=== PATIENT | female | born 1960 | race Caucasian/White ===

== ENCOUNTER 2017-11-20 12:34 | Emergency (ER) | payer OTHER ==
[~2017-11-20] VITALS: Ht 157.5 cm; Wt 90.7 kg
[~2017-11-20 12:34] MED LIST: BENICAR; HUMALOG MI100 UNIT/3; JANUMET 50-1,01 EACH; LANTUS; PERCOCET 5-3251 EACH PO; ZOFRAN4 MG PO
[2017-11-20] MEDS ORDERED: NEURONTIN 300300 M1 PO (13:04)
[2017-11-20] MEDS ORDERED: GLUCOPHAGE1000 MG PO (13:04)
[2017-11-20] MEDS ORDERED: LEVEMIR SUBQ (13:05)
[2017-11-20] MEDS ORDERED: VALSARTAN-HCTZ1 EAC2 PO (13:05)
[2017-11-20] MEDS ORDERED: FLEXERIL PO (14:47)
[2017-11-20 15:05] VITALS: BP 153/93
== END 2017-11-20 15:06 | disposition home or self-care (01) ==
LOC: M.ERS 12:34
DX: S13.4XXA Sprain of ligaments of cervical spine, initial encounter (principal); S39.012A Strain of muscle, fascia and tendon of lower back, initial encounter; E11.9 Type 2 diabetes mellitus without complications; Z88.5 Allergy status to narcotic agent; Z79.4 Long term (current) use of insulin; V89.2XXA Person injured in unspecified motor-vehicle accident, traffic, initial encounter; Y93.89 Activity, other specified; Y92.89 Other specified places as the place of occurrence of the external cause; Y99.8 Other external cause status

== ENCOUNTER 2021-03-29 16:52 | Emergency (ER) | payer MEDICAID ==
[~2021-03-29] VITALS: Ht 157.5 cm; Wt 84.8 kg
[~2021-03-29 16:52] MED LIST changes: +FLEXERIL PO; +GLUCOPHAGE1000 MG PO; +LEVEMIR SUBQ; +NEURONTIN 300300 M1 PO; +VALSARTAN-HCTZ1 EAC2 PO
[2021-03-29] MEDS ORDERED: CIPRO500 M1 PO ×3 (17:40→18:03)
[2021-03-29] MEDS ORDERED: CEPHALEXIN500 MG PO ×2 (17:45→18:03)
[2021-03-29 18:03] VITALS: BP 134/72
== END 2021-03-29 18:04 | disposition home or self-care (01) ==
LOC: M.ERS 16:52
DX: S91.331A Puncture wound without foreign body, right foot, initial encounter (principal); E11.9 Type 2 diabetes mellitus without complications; Z79.4 Long term (current) use of insulin; Z79.899 Other long term (current) drug therapy; Z88.1 Allergy status to other antibiotic agents; Z88.5 Allergy status to narcotic agent; W18.31XA Fall on same level due to stepping on an object, initial encounter; Y93.89 Activity, other specified; Y92.89 Other specified places as the place of occurrence of the external cause; Y99.8 Other external cause status